=== PATIENT | male | born 1950 | race Caucasian/White ===

== ENCOUNTER 2016-10-26 13:32 | Emergency (ER) | payer MEDICARE ==
[2016-10-26] MEDS ORDERED: Lidocaine 1% w/Epinephrine 1:100K 20 ML VIAL ONE (13:48)
[2016-10-26] MEDS ORDERED: Sodium Bicarbonate 2.4 MEQ/5 ML ONE (13:51)
[2016-10-26] MEDS ORDERED: Amoxicillin/Potassium Clav 875 MG TAB ONE (14:00)
[2016-10-26] MEDS ORDERED: Bacitracin Zinc 1 Packet ONE (14:13)
[2016-10-26] MEDS ORDERED: traMADol HCl 50 MG TAB ONE (14:38)
--- NOTE | 2016-10-26 15:23 | RAD ---
TWO VIEWS OF THE LEFT FORELEG. INDICATION: Laceration injury. FINDINGS: No acute fracture or subluxation is evident. No radiopaque foreign body is noted. IMPRESSION: No acute osseous abnormality. POS: [facility]
== END 2016-10-26 15:20 | disposition home or self-care (01) ==
LOC: NAV ERS 13:32
DX: S81.812A Laceration without foreign body, left lower leg, initial encounter (principal); I10 Essential (primary) hypertension; E78.5 Hyperlipidemia, unspecified; E78.00 Pure hypercholesterolemia, unspecified; F17.220 Nicotine dependence, chewing tobacco, uncomplicated; Z79.899 Other long term (current) drug therapy; W45.8XXA Other foreign body or object entering through skin, initial encounter
CPT/HCPCS: 12034; J2001

== ENCOUNTER 2016-11-02 08:09 | Outpatient (CLI) | payer MEDICARE ==
[2016-11-02 12:42] LABS: Anion Gap 17 mmol/L (10-20); BUN (Urea Nitrogen) 13 mg/dL (8.4-25.7); Calc. Creatinine Clearance 0 mL/min (70-130); Calcium 9.6 mg/dL (7.8-10.44); Carbon Dioxide 23 mmol/L (23-31); Chloride 107 mmol/L (98-107); Estimated GFR-MDRD 81; LDL Cholesterol, Calculated 82 mg/dL
[2016-11-02 13:25] LABS: #Basophils 0.1 thou/uL (0.0-0.2); #Lymphocytes 2.3 thou/uL (1.20-3.40); #Monocytes 0.7 thou/uL (0.11-0.59); %Basophils 0.9 % (0.0-1.0); %Eosinophils 9.9 % (0.0-10.0); %Lymphocytes 22.5 % (21.0-51.0); %Monocytes 6.7 % (0.0-10.0); Hematocrit 47.2 % (42.0-52.0); Red Blood Cell (RBC) Count 5.36 mill/uL (4.70-6.10)
[2016-11-02 13:51] LABS: Hemoglobin A1c 6.2 % (4.0-6.0)
== END 2016-11-02 08:10 ==
LOC: NAVSJIPCSP 08:09
PROVIDERS: ATTEND Family Medicine
DX: E78.00 Pure hypercholesterolemia, unspecified (principal); K21.9 Gastro-esophageal reflux disease without esophagitis; I10 Essential (primary) hypertension; Z79.899 Other long term (current) drug therapy
CPT/HCPCS: 36415; 80048; 80061; 83036; 84443; 85025

== ENCOUNTER 2016-12-10 17:23 | Outpatient (CLI) | payer MEDICARE ==
[2016-12-10 17:47] LABS: Bilirubin Negative (Negative); Blood, Urine Negative (Negative); Clarity Clear (Clear); Glucose, Urine (Dipstick) Negative (Negative); Leukocyte Negative (Negative); Nitrite Negative (Negative); Protein, Urine (Dipstick) Negative (Neg-Trace); Urobilinogen 0.2 mg/dL (0.2-1.0); pH, Urine 5.5 (5.0-9.0)
[2016-12-10 17:49] LABS: Specific Gravity, Urine 1.028 (1.002-1.036)
== END 2016-12-10 17:24 | disposition home or self-care (01) ==
LOC: NAV LAB 17:23
PROVIDERS: ATTEND Family Medicine
DX: N42.82 Prostatosis syndrome (principal); N30.00 Acute cystitis without hematuria
CPT/HCPCS: 81003; 87077; 87086; 87186

== ENCOUNTER 2017-03-05 09:09 | Outpatient (CLI) | payer MEDICARE ==
[2017-03-05 12:29] LABS: #Basophils 0.1 thou/uL (0.0-0.2); #Eosinphils 1.1 thou/uL (0.0-0.7); #Lymphocytes 2.4 thou/uL (1.20-3.40); #Monocytes 0.5 thou/uL (0.11-0.59); #Neutrophils 5.2 thou/uL (1.40-6.50); %Basophils 0.9 % (0.0-1.0); %Eosinophils 11.8 % (0.0-10.0); %Lymphocytes 25.9 % (21.0-51.0); %Monocytes 5.9 % (0.0-10.0); %Neutrophils 55.6 % (42.0-75.0); Hemoglobin 15.4 g/dL (14.0-18.0); Mean Corpuscular HGB CONC 33.1 g/dL (32.0-36.0); Mean Corpuscular Hemoglobin 28.9 pg (27.0-31.0); Mean Corpuscular Volume 87.2 fl (80.0-94.0); Mean Platelet Volume 7.2 fL (7.4-10.4); Platelet Count 233 thou/uL (130-400); RBC Distribution Width 11.5 % (11.5-14.5); Red Blood Cell (RBC) Count 5.34 mill/uL (4.70-6.10); White Blood Cell (WBC) Count 9.3 thou/uL (4.8-10.8)
[2017-03-05 12:41] LABS: ALT (SGPT) 47 U/L (8-55); AST (SGOT) 24 U/L (5-34); Albumin 4.3 g/dL (3.4-4.8); Alkaline Phosphatase 61 U/L (40-150); Anion Gap 17 mmol/L (10-20); BUN (Urea Nitrogen) 17 mg/dL (8.4-25.7); Bilirubin, Direct 0.3 mg/dL (0.1-0.3); Calc. Creatinine Clearance 0 mL/min (70-130); Calcium 9.4 mg/dL (7.8-10.44); Carbon Dioxide 19 mmol/L (23-31); Cardiac Risk 4.6 (Less than 4.5); Chloride 108 mmol/L (98-107); Cholesterol 152 mg/dl (< 200 Desired); Estimated GFR-MDRD 76; Glucose 115 mg/dL (80-115); HDL Cholesterol 33 mg/dL (>60 Neg Risk); LDL Cholesterol, Calculated 88 mg/dL; Potassium 4.3 mmol/L (3.5-5.1); Protein, Total 6.7 g/dL (5.8-8.1); Sodium 140 mmol/L (136-145); Triglycerides 155 mg/dL (Less than 150)
[2017-03-05 13:04] LABS: Hemoglobin A1c 6.2 % (4.0-6.0)
== END 2017-03-05 09:10 | disposition home or self-care (01) ==
LOC: NAVSJIPCSP 09:09
PROVIDERS: ATTEND Family Medicine
DX: I10 Essential (primary) hypertension (principal); K21.9 Gastro-esophageal reflux disease without esophagitis; E78.00 Pure hypercholesterolemia, unspecified; R03.0 Elevated blood-pressure reading, without diagnosis of hypertension
CPT/HCPCS: 36415; 80048; 80061; 80076; 83036; 84443; 85025

== ENCOUNTER 2017-03-12 15:00 | Outpatient (CLI) | payer MEDICARE ==
--- NOTE | 2017-03-12 16:51 | RAD ---
CHEST TWO VIEWS: History: Chronic cough x 7-8 months. Comparison: None. FINDINGS: Atherosclerosis of the aorta. Normal cardiac silhouette. The pulmonary vessels and hilum are normal. Costophrenic angles are clear. No masses or consolidation. No pneumothorax or osseous abnormality. IMPRESSION: No acute cardiopulmonary process. POS: [facility]
== END 2017-03-12 15:01 | disposition home or self-care (01) ==
LOC: NAV RAD 15:00
PROVIDERS: ATTEND Family Medicine
DX: R05 Cough (principal)
CPT/HCPCS: 71020

== ENCOUNTER 2018-03-31 14:44 | Outpatient (CLI) | payer MEDICARE | END 2018-03-31 14:45 | disposition home or self-care (01) | LOC: NAV LABSP 14:44 | PROVIDERS: ATTEND Family Medicine | DX: N41.0 Acute prostatitis (principal); R30.0 Dysuria ==

== ENCOUNTER 2020-08-13 14:33 | Emergency (ER) | payer MEDICARE ==
[2020-08-13] MEDS ORDERED: Aspirin Chewable 81 MG TAB ONE (15:07)
[2020-08-13] MEDS ORDERED: Pantoprazole 40 MG VIAL ONE (15:07)
[2020-08-13] MEDS ORDERED: Ondansetron PF 4 MG/2 ML Vial ONE (15:07)
[2020-08-13] MEDS ORDERED: Lidocaine Viscous Sol 2% 15 ml UD Cup ONE (15:07)
[2020-08-13] MEDS ORDERED: Mag-Al Plus 1200 MG/1200 MG/120 MG/30 ML UDCUP ONE (15:07)
[2020-08-13] MEDS ORDERED: Nitroglycerin 0.4 MG TAB (25 Tab Bottle) ONE (15:07)
[2020-08-13 15:17] LABS: #Basophils 0.1 thou/uL (0.0-0.2); #Eosinphils 0.2 thou/uL (0.0-0.7); #Lymphocytes 1.7 thou/uL (1.20-3.40); #Monocytes 1.1 thou/uL (0.11-0.59); #Neutrophils 10.3 thou/uL (1.40-6.50); %Basophils 0.8 % (0.0-1.0); %Eosinophils 1.8 % (0.0-10.0); %Lymphocytes 12.7 % (21.0-51.0); %Monocytes 7.9 % (0.0-10.0); %Neutrophils 76.8 % (42.0-75.0); Mean Corpuscular HGB CONC 33.1 g/dL (32.0-36.0); Mean Corpuscular Hemoglobin 29.4 pg (27.0-31.0); Mean Corpuscular Volume 88.7 fL (78.0-98.0); Mean Platelet Volume 8.6 fL (7.4-10.4); Platelet Count 210 thou/uL (130-400); RBC Distribution Width 11.2 % (11.5-14.5); Red Blood Cell (RBC) Count 5.09 mill/uL (4.70-6.10); White Blood Cell (WBC) Count 13.4 thou/uL (4.8-10.8)
--- NOTE | 2020-08-13 15:32 | RAD ---
Portable frontal chest radiograph: 08/13/2020 COMPARISON: 03/26/2019 HISTORY: Shortness of breath, chest pain FINDINGS: Lungs are clear. Heart and mediastinal contours appear within normal limits. IMPRESSION: No acute findings.
[2020-08-13 15:33] LABS: ALT (SGPT) 19 U/L (8-55); AST (SGOT) 12 U/L (5-34); Albumin 4.2 g/dL (3.4-4.8); Alkaline Phosphatase 81 U/L (40-110); Anion Gap 14 mmol/L (10-20); BUN (Urea Nitrogen) 14 mg/dL (8.4-25.7); Bilirubin, Total 1.1 mg/dL (0.2-1.2); CK (CPK) 55 U/L (30-200); Calc. Creatinine Clearance 0 mL/min (70-130); Carbon Dioxide 24 mmol/L (23-31); Chloride 106 mmol/L (98-107); Estimated GFR-MDRD 79; Globulin 2.5 g/dL (2.4-3.5); Glucose 135 mg/dL (83-110); Lipase 32 U/L (8-78); Potassium 3.6 mmol/L (3.5-5.1); Protein, Total 6.7 g/dL (5.8-8.1); Sodium 140 mmol/L (136-145)
[2020-08-13] MEDS ORDERED: Morphine 4 MG/ML VIAL ONE (15:50)
[2020-08-13] MEDS ORDERED: Fentanyl 100 MCG/2 ML VIAL ONE (16:17)
== END 2020-08-13 16:43 | disposition short-term general hospital (02) ==
LOC: NAV ERS 14:33
DX: R07.9 Chest pain, unspecified (principal); R10.11 Right upper quadrant pain; E78.5 Hyperlipidemia, unspecified; E78.00 Pure hypercholesterolemia, unspecified; I10 Essential (primary) hypertension; Z79.899 Other long term (current) drug therapy
CPT/HCPCS: 71045; 80053; 82550; 83690; 84484; 85025; 85379; 93005; 96374; 96375; C9113; J2270; J2405; J3010

== ENCOUNTER 2021-05-10 20:47 | Emergency (ER) | payer MEDICARE ==
[2021-05-10 21:56] LABS: #Lymphocytes 0.9 thou/uL (1.20-3.40); #Monocytes 0.3 thou/uL (0.11-0.59); #Neutrophils 5.6 thou/uL (1.40-6.50); %Basophils 0.5 % (0.0-1.0); %Eosinophils 0.1 % (0.0-10.0); %Monocytes 4.9 % (0.0-10.0); %Neutrophils 81.5 % (42.0-75.0); Hemoglobin 15.2 g/dL (14.0-18.0); Mean Corpuscular HGB CONC 32.5 g/dL (32.0-36.0); Mean Corpuscular Volume 89.3 fL (78.0-98.0); Mean Platelet Volume 11.3 fL (7.4-10.4); Platelet Count 125 thou/uL (130-400); RBC Distribution Width 11.1 % (11.5-14.5); Red Blood Cell (RBC) Count 5.22 mill/uL (4.70-6.10); White Blood Cell (WBC) Count 6.9 thou/uL (4.8-10.8)
[2021-05-10 22:12] LABS: ALT (SGPT) 35 U/L (8-55); AST (SGOT) 51 U/L (5-34); Albumin 3.6 g/dL (3.4-4.8); Alkaline Phosphatase 57 U/L (40-110); Anion Gap 16 mmol/L (10-20); BUN (Urea Nitrogen) 20 mg/dL (8.4-25.7); Bilirubin, Total 0.8 mg/dL (0.2-1.2); Calc. Creatinine Clearance 0 mL/min (70-130); Calcium 9.2 mg/dL (7.8-10.44); Carbon Dioxide 18 mmol/L (23-31); Chloride 104 mmol/L (98-107); Globulin 3.4 g/dL (2.4-3.5); Glucose 117 mg/dL (83-110); Potassium 4.3 mmol/L (3.5-5.1); Sodium 134 mmol/L (136-145)
[2021-05-11 18:30] LABS: SARS-CoV-2 PCR by NAA DETECTED (NotDetected)
== END 2021-05-10 23:10 | disposition home or self-care (01) ==
LOC: NAV ERS 20:47
DX: U07.1 COVID-19 (principal); J12.82 Pneumonia due to coronavirus disease 2019; E78.5 Hyperlipidemia, unspecified; I10 Essential (primary) hypertension; Z79.899 Other long term (current) drug therapy
CPT/HCPCS: 71045; 80053; 83605; 84484; 85025; 93005; 99285; U0003; U0005

== ENCOUNTER 2021-05-11 13:30 | Emergency (ER) | payer MEDICARE ==
[~2021-05-11 13:30] MED LIST: Iopamidol 370 76% 100 ML VIAL ONE
[2021-05-11 14:02] LABS: #Monocytes 0.3 thou/uL (0.11-0.59); #Neutrophils 5.8 thou/uL (1.40-6.50); %Basophils 0.2 % (0.0-1.0); %Lymphocytes 13.6 % (21.0-51.0); %Monocytes 3.9 % (0.0-10.0); %Neutrophils 82.3 % (42.0-75.0); Hemoglobin 14.8 g/dL (14.0-18.0); Mean Corpuscular HGB CONC 31.4 g/dL (32.0-36.0); Mean Corpuscular Hemoglobin 28.4 pg (27.0-31.0); Mean Corpuscular Volume 90.3 fL (78.0-98.0); Mean Platelet Volume 9.7 fL (7.4-10.4); Platelet Count 156 thou/uL (130-400); RBC Distribution Width 11.3 % (11.5-14.5); Red Blood Cell (RBC) Count 5.23 mill/uL (4.70-6.10)
[2021-05-11 14:21] LABS: ALT (SGPT) 37 U/L (8-55); AST (SGOT) 52 U/L (5-34); Albumin 3.6 g/dL (3.4-4.8); Alkaline Phosphatase 58 U/L (40-110); Anion Gap 15 mmol/L (10-20); BUN (Urea Nitrogen) 14 mg/dL (8.4-25.7); Bilirubin, Total 0.8 mg/dL (0.2-1.2); Calc. Creatinine Clearance 0 mL/min (70-130); Calcium 9.2 mg/dL (7.8-10.44); Carbon Dioxide 23 mmol/L (23-31); Chloride 102 mmol/L (98-107); Globulin 3.3 g/dL (2.4-3.5); Glucose 110 mg/dL (83-110); Magnesium 1.7 mg/dL (1.6-2.6); Potassium 4.5 mmol/L (3.5-5.1); Protein, Total 6.9 g/dL (5.8-8.1); Sodium 135 mmol/L (136-145)
[2021-05-11] MEDS ORDERED: Acetaminophen 325 MG TAB ONE (16:04)
[2021-05-11] MEDS ORDERED: Dexamethasone 20 MG/5 ML VIAL ONE (16:04)
[2021-05-11] MEDS ORDERED: Ibuprofen 200 MG TAB ONE (16:04)
== END 2021-05-12 01:44 | disposition short-term general hospital (02) ==
LOC: NAV ERS 13:30
DX: U07.1 COVID-19 (principal); J12.82 Pneumonia due to coronavirus disease 2019; R09.02 Hypoxemia; E78.5 Hyperlipidemia, unspecified; E78.00 Pure hypercholesterolemia, unspecified; I10 Essential (primary) hypertension; Z79.899 Other long term (current) drug therapy
CPT/HCPCS: 71045; 71275; 80053; 83735; 84484; 85025; 85379; 93005; 94760; 96374; J1100; Q9967

== ENCOUNTER 2021-06-13 15:27 | Inpatient (IN) | payer MEDICARE ==
[2021-06-13] MEDS ORDERED: Dextrose 50% Abboject 50 ML SYRINGE SLOW IVP PRN (19:55)
[2021-06-13] MEDS ORDERED: Dextrose 5% in Water 1,000 ML IV PRN (20:00)
[2021-06-13] MEDS ORDERED: PREPARATION H OINTMENT TOP PRN (20:13)
[2021-06-13] MEDS ORDERED: Cepastat Lozenges 1 LOZ PO PRN (21:14)
[2021-06-13] MEDS ORDERED: Chloraseptic Spray 180 ml Bottle PO PRN (21:30)
[2021-06-13] MEDS ORDERED: hydrOXYzine 25 MG TAB PO SCH (21:30)
[2021-06-13] MEDS: Acetaminophen 325 MG TAB PO PRN (21:42)
[2021-06-13] MEDS: Nystatin 500,000 UNITS/5 ML UDCUP SSW SCH (21:42)
[2021-06-13] MEDS: Melatonin 3 MG TAB PO PRN (21:42)
[2021-06-13] MEDS: busPIRone HCl 15 MG TAB PO SCH (21:43)
[2021-06-13] MEDS: diphenhydrAMINE 50 MG/ML VIAL IVP SCH (21:43)
[2021-06-13] MEDS: Atorvastatin Calcium 20 MG TAB PO SCH (21:43)
[2021-06-13] MEDS: guaiFENesin ER 600 MG TAB PO SCH (21:43)
[2021-06-13] MEDS: Lantus 1000 UNITS/10 ML VIAL SC SCH (21:44)
[2021-06-13] MEDS: Mometasone 100 MCG/PUFF (1 INHALER) INH SCH (21:44)
[2021-06-13] MEDS: HumaLOG 300 UNITS/3 ML VIAL SC PRN (21:45)
[2021-06-14] MEDS: Calcium Carbonate 500 MG ChewTAB PO PRN ×2 (02:05→11:05)
[2021-06-14] MEDS: Acetaminophen 325 MG TAB PO PRN ×3 (03:49→22:30)
[2021-06-14 07:00] LABS: Anion Gap 12 mmol/L (10-20); BUN (Urea Nitrogen) 23 mg/dL (8.4-25.7); Calc. Creatinine Clearance 121 mL/min (70-130); Calcium 9.4 mg/dL (7.8-10.44); Carbon Dioxide 25 mmol/L (23-31); Chloride 101 mmol/L (98-107); Glucose 123 mg/dL (83-110); Potassium 4.3 mmol/L (3.5-5.1); Sodium 134 mmol/L (136-145)
[2021-06-14 07:13] LABS: #Basophils 0.2 thou/uL (0.0-0.2); #Lymphocytes 1.3 thou/uL (1.20-3.40); #Monocytes 1.1 thou/uL (0.11-0.59); #Neutrophils 12.5 thou/uL (1.40-6.50); %Basophils 1.2 % (0.0-1.0); %Eosinophils 0.3 % (0.0-10.0); %Lymphocytes 8.8 % (21.0-51.0); %Monocytes 7.3 % (0.0-10.0); %Neutrophils 82.5 % (42.0-75.0); Hemoglobin 15.4 g/dL (14.0-18.0); Mean Corpuscular HGB CONC 32.6 g/dL (32.0-36.0); Mean Corpuscular Hemoglobin 29.2 pg (27.0-31.0); Mean Corpuscular Volume 89.5 fL (78.0-98.0); Mean Platelet Volume 6.6 fL (7.4-10.4); Platelet Count 205 thou/uL (130-400); RBC Distribution Width 11.6 % (11.5-14.5); Red Blood Cell (RBC) Count 5.27 mill/uL (4.70-6.10); White Blood Cell (WBC) Count 15.2 thou/uL (4.8-10.8)
[2021-06-14] MEDS: Ascorbic Acid 500 mg Chewable Tablet PO SCH (08:48)
[2021-06-14] MEDS: guaiFENesin ER 600 MG TAB PO SCH ×2 (08:48→20:44)
[2021-06-14] MEDS: Cholecalciferol 1,000 UNITS (25 MCG) TAB PO SCH (08:48)
[2021-06-14] MEDS: busPIRone HCl 15 MG TAB PO SCH ×2 (08:48→20:44)
[2021-06-14] MEDS: Dexamethasone 4 MG TAB PO SCH (08:48)
[2021-06-14] MEDS: Polyethylene Glycol 3350 17 GM Packet PO SCH (08:49)
[2021-06-14] MEDS: Nystatin 500,000 UNITS/5 ML UDCUP SSW SCH ×4 (08:49→20:44)
[2021-06-14] MEDS: Zinc Sulfate 220 MG CAP PO SCH (08:50)
[2021-06-14] MEDS: Metamucil PACK PO SCH (08:50)
[2021-06-14] MEDS: Mometasone 100 MCG/PUFF (1 INHALER) INH SCH ×2 (08:51→20:46)
[2021-06-14] MEDS: hydrOXYzine 25 MG TAB PO PRN (08:55)
[2021-06-14] MEDS ORDERED: Pantoprazole 40 MG GRANULES PACKET PO SCH (09:00)
[2021-06-14] MEDS ORDERED: Losartan 25 MG TAB PO SCH (09:00)
[2021-06-14 11:50] LABS: Hemoglobin A1c 8.1 % (4.0-6.0)
[2021-06-14] MEDS: HumaLOG 300 UNITS/3 ML VIAL SC PRN ×3 (11:51→20:47)
[2021-06-14] MEDS: Guaifenesin DM 100-10/5 ML UDCUP PO PRN (18:12)
[2021-06-14] MEDS: Benzonatate 100 MG CAP PO PRN (18:12)
[2021-06-14] MEDS: Melatonin 3 MG TAB PO PRN (20:44)
[2021-06-14] MEDS: Atorvastatin Calcium 20 MG TAB PO SCH (20:44)
[2021-06-14] MEDS: diphenhydrAMINE 50 MG/ML VIAL IVP SCH (20:44)
[2021-06-14] MEDS: Lantus 1000 UNITS/10 ML VIAL SC SCH (20:45)
[2021-06-14] MEDS: Enoxaparin Sodium 40 MG/0.4 ML SYRINGE SC SCH (20:45)
[2021-06-14] MEDS ORDERED: hydrOXYzine 25 MG TAB PO SCH (21:00)
[2021-06-15] MEDS: Acetaminophen 325 MG TAB PO PRN ×3 (05:28→20:52)
[2021-06-15] MEDS: HumaLOG 300 UNITS/3 ML VIAL SC PRN ×4 (06:22→20:36)
[2021-06-15] MEDS: Cholecalciferol 1,000 UNITS (25 MCG) TAB PO SCH (08:10)
[2021-06-15] MEDS: guaiFENesin ER 600 MG TAB PO SCH ×2 (08:10→20:42)
[2021-06-15] MEDS: busPIRone HCl 15 MG TAB PO SCH ×2 (08:10→20:41)
[2021-06-15] MEDS: Ascorbic Acid 500 mg Chewable Tablet PO SCH (08:10)
[2021-06-15] MEDS: Dexamethasone 4 MG TAB PO SCH (08:10)
[2021-06-15] MEDS: Mometasone 100 MCG/PUFF (1 INHALER) INH SCH ×2 (08:11→20:42)
[2021-06-15] MEDS: Nystatin 500,000 UNITS/5 ML UDCUP SSW SCH ×4 (08:11→20:41)
[2021-06-15] MEDS: Losartan Potassium 50 MG TAB PO SCH (08:11)
[2021-06-15] MEDS: Metamucil PACK PO SCH (08:12)
[2021-06-15] MEDS: Polyethylene Glycol 3350 17 GM Packet PO SCH (08:12)
[2021-06-15] MEDS: Zinc Sulfate 220 MG CAP PO SCH (08:12)
[2021-06-15] MEDS: hydrOXYzine 25 MG TAB PO PRN (08:15)
[2021-06-15] MEDS: clonazePAM 0.5 MG TAB PO PRN (11:33)
[2021-06-15] MEDS: Lantus 1000 UNITS/10 ML VIAL SC SCH (20:37)
[2021-06-15] MEDS: Enoxaparin Sodium 40 MG/0.4 ML SYRINGE SC SCH (20:38)
[2021-06-15] MEDS: Atorvastatin Calcium 20 MG TAB PO SCH (20:41)
[2021-06-15] MEDS: diphenhydrAMINE 25 MG CAP PO SCH (20:42)
[2021-06-16] MEDS: guaiFENesin/Codeine 200 mg/20 mg 10 ml Cup PO PRN (00:18)
[2021-06-16] MEDS: Acetaminophen 325 MG TAB PO PRN ×3 (02:16→17:21)
[2021-06-16] MEDS: Metamucil PACK PO SCH (08:43)
[2021-06-16] MEDS: Polyethylene Glycol 3350 17 GM Packet PO SCH (08:44)
[2021-06-16] MEDS: Ascorbic Acid 500 mg Chewable Tablet PO SCH (08:44)
[2021-06-16] MEDS: guaiFENesin ER 600 MG TAB PO SCH ×2 (08:44→20:44)
[2021-06-16] MEDS: Nystatin 500,000 UNITS/5 ML UDCUP SSW SCH ×4 (08:45→20:44)
[2021-06-16] MEDS: Cholecalciferol 1,000 UNITS (25 MCG) TAB PO SCH (08:45)
[2021-06-16] MEDS: Dexamethasone 4 MG TAB PO SCH (08:45)
[2021-06-16] MEDS: busPIRone HCl 15 MG TAB PO SCH ×2 (08:45→20:44)
[2021-06-16] MEDS: Losartan Potassium 50 MG TAB PO SCH (08:45)
[2021-06-16] MEDS: Mometasone 100 MCG/PUFF (1 INHALER) INH SCH ×2 (08:46→20:55)
[2021-06-16] MEDS: Zinc Sulfate 220 MG CAP PO SCH (08:47)
[2021-06-16] MEDS: Benzonatate 100 MG CAP PO PRN ×2 (08:48→20:44)
[2021-06-16] MEDS: HumaLOG 300 UNITS/3 ML VIAL SC PRN ×2 (11:34→16:38)
[2021-06-16] MEDS: Enoxaparin Sodium 40 MG/0.4 ML SYRINGE SC SCH (20:43)
[2021-06-16] MEDS: clonazePAM 0.5 MG TAB PO PRN (20:44)
[2021-06-16] MEDS: Lantus 1000 UNITS/10 ML VIAL SC SCH (20:44)
[2021-06-16] MEDS: diphenhydrAMINE 25 MG CAP PO SCH (20:44)
[2021-06-16] MEDS: Atorvastatin Calcium 20 MG TAB PO SCH (20:44)
[2021-06-17] MEDS: guaiFENesin/Codeine 200 mg/20 mg 10 ml Cup PO PRN (00:15)
[2021-06-17] MEDS: Melatonin 3 MG TAB PO PRN (00:15)
[2021-06-17 05:28] LABS: #Basophils 0.2 thou/uL (0.0-0.2); #Lymphocytes 1.8 thou/uL (1.20-3.40); #Monocytes 0.8 thou/uL (0.11-0.59); #Neutrophils 10.7 thou/uL (1.40-6.50); %Basophils 1.2 % (0.0-1.0); %Eosinophils 0.3 % (0.0-10.0); %Lymphocytes 13.3 % (21.0-51.0); %Monocytes 5.8 % (0.0-10.0); %Neutrophils 79.3 % (42.0-75.0); Hemoglobin 15.2 g/dL (14.0-18.0); Mean Corpuscular HGB CONC 33.2 g/dL (32.0-36.0); Mean Corpuscular Hemoglobin 29.4 pg (27.0-31.0); Mean Corpuscular Volume 88.7 fL (78.0-98.0); Mean Platelet Volume 6.3 fL (7.4-10.4); Platelet Count 163 thou/uL (130-400); RBC Distribution Width 12.3 % (11.5-14.5); Red Blood Cell (RBC) Count 5.18 mill/uL (4.70-6.10); White Blood Cell (WBC) Count 13.5 thou/uL (4.8-10.8)
[2021-06-17 05:47] LABS: Anion Gap 12 mmol/L (10-20); BUN (Urea Nitrogen) 19 mg/dL (8.4-25.7); Calc. Creatinine Clearance 121 mL/min (70-130); Carbon Dioxide 26 mmol/L (23-31); Chloride 101 mmol/L (98-107); Potassium 4.1 mmol/L (3.5-5.1); Sodium 135 mmol/L (136-145)
[2021-06-17 05:48] LABS: Calcium 8.8 mg/dL (7.8-10.44); Glucose 102 mg/dL (83-110)
[2021-06-17] MEDS: Cholecalciferol 1,000 UNITS (25 MCG) TAB PO SCH (08:41)
[2021-06-17] MEDS: guaiFENesin ER 600 MG TAB PO SCH ×2 (08:42→20:48)
[2021-06-17] MEDS: Ascorbic Acid 500 mg Chewable Tablet PO SCH (08:42)
[2021-06-17] MEDS: busPIRone HCl 15 MG TAB PO SCH ×2 (08:43→20:47)
[2021-06-17] MEDS: Metamucil PACK PO SCH (08:43)
[2021-06-17] MEDS: Zinc Sulfate 220 MG CAP PO SCH (08:43)
[2021-06-17] MEDS: Mometasone 100 MCG/PUFF (1 INHALER) INH SCH ×2 (08:43→20:56)
[2021-06-17] MEDS: Dexamethasone 4 MG TAB PO SCH (08:43)
[2021-06-17] MEDS: Losartan Potassium 50 MG TAB PO SCH (08:43)
[2021-06-17] MEDS: Nystatin 500,000 UNITS/5 ML UDCUP SSW SCH ×4 (08:43→20:46)
[2021-06-17] MEDS: Polyethylene Glycol 3350 17 GM Packet PO SCH (08:44)
[2021-06-17] MEDS: Benzonatate 100 MG CAP PO PRN ×2 (08:45→20:47)
[2021-06-17] MEDS: Acetaminophen 325 MG TAB PO PRN ×3 (08:45→20:46)
[2021-06-17] MEDS: HumaLOG 300 UNITS/3 ML VIAL SC PRN ×3 (11:44→20:46)
[2021-06-17] MEDS: Lantus 1000 UNITS/10 ML VIAL SC SCH (20:45)
[2021-06-17] MEDS: Enoxaparin Sodium 40 MG/0.4 ML SYRINGE SC SCH (20:45)
[2021-06-17] MEDS: clonazePAM 0.5 MG TAB PO PRN (20:47)
[2021-06-17] MEDS: diphenhydrAMINE 25 MG CAP PO SCH (20:47)
[2021-06-17] MEDS: Atorvastatin Calcium 20 MG TAB PO SCH (20:48)
[2021-06-18] MEDS: guaiFENesin/Codeine 200 mg/20 mg 10 ml Cup PO PRN (00:17)
[2021-06-18] MEDS: Melatonin 3 MG TAB PO PRN (00:17)
[2021-06-18] MEDS: Cholecalciferol 1,000 UNITS (25 MCG) TAB PO SCH (08:36)
[2021-06-18] MEDS: Polyethylene Glycol 3350 17 GM Packet PO SCH (08:36)
[2021-06-18] MEDS: Mometasone 100 MCG/PUFF (1 INHALER) INH SCH ×2 (08:37→20:50)
[2021-06-18] MEDS: Metamucil PACK PO SCH (08:37)
[2021-06-18] MEDS: Nystatin 500,000 UNITS/5 ML UDCUP SSW SCH ×4 (08:37→20:49)
[2021-06-18] MEDS: Ascorbic Acid 500 mg Chewable Tablet PO SCH (08:37)
[2021-06-18] MEDS: guaiFENesin ER 600 MG TAB PO SCH ×2 (08:37→20:49)
[2021-06-18] MEDS: Zinc Sulfate 220 MG CAP PO SCH (08:37)
[2021-06-18] MEDS: busPIRone HCl 15 MG TAB PO SCH ×2 (08:37→20:49)
[2021-06-18] MEDS: Dexamethasone 4 MG TAB PO SCH (08:37)
[2021-06-18] MEDS: Losartan Potassium 50 MG TAB PO SCH (08:38)
[2021-06-18] MEDS: Benzonatate 100 MG CAP PO PRN ×2 (08:42→20:50)
[2021-06-18] MEDS: Acetaminophen 325 MG TAB PO PRN ×3 (08:42→20:49)
[2021-06-18] MEDS: HumaLOG 300 UNITS/3 ML VIAL SC PRN ×3 (11:38→20:47)
[2021-06-18] MEDS: Guaifenesin DM 100-10/5 ML UDCUP PO PRN (16:48)
[2021-06-18] MEDS: Lantus 1000 UNITS/10 ML VIAL SC SCH (20:46)
[2021-06-18] MEDS: Enoxaparin Sodium 40 MG/0.4 ML SYRINGE SC SCH (20:47)
[2021-06-18] MEDS: clonazePAM 0.5 MG TAB PO PRN (20:49)
[2021-06-18] MEDS: diphenhydrAMINE 25 MG CAP PO SCH (20:50)
[2021-06-18] MEDS: Atorvastatin Calcium 20 MG TAB PO SCH (20:50)
[2021-06-19] MEDS: Melatonin 3 MG TAB PO PRN ×2 (01:45→22:49)
[2021-06-19] MEDS: guaiFENesin/Codeine 200 mg/20 mg 10 ml Cup PO PRN ×2 (02:10→22:49)
[2021-06-19] MEDS: HumaLOG 300 UNITS/3 ML VIAL SC PRN ×3 (05:24→17:17)
[2021-06-19] MEDS: Dexamethasone 4 MG TAB PO SCH (08:29)
[2021-06-19] MEDS: Ascorbic Acid 500 mg Chewable Tablet PO SCH (08:30)
[2021-06-19] MEDS: busPIRone HCl 15 MG TAB PO SCH ×2 (08:31→20:17)
[2021-06-19] MEDS: guaiFENesin ER 600 MG TAB PO SCH ×2 (08:31→20:17)
[2021-06-19] MEDS: Zinc Sulfate 220 MG CAP PO SCH (08:31)
[2021-06-19] MEDS: Cholecalciferol 1,000 UNITS (25 MCG) TAB PO SCH (08:32)
[2021-06-19] MEDS: Nystatin 500,000 UNITS/5 ML UDCUP SSW SCH ×4 (08:32→20:16)
[2021-06-19] MEDS: Polyethylene Glycol 3350 17 GM Packet PO SCH (08:33)
[2021-06-19] MEDS: Metamucil PACK PO SCH (08:34)
[2021-06-19] MEDS: Mometasone 100 MCG/PUFF (1 INHALER) INH SCH ×2 (08:39→20:18)
[2021-06-19] MEDS: Losartan Potassium 50 MG TAB PO SCH (08:45)
[2021-06-19] MEDS: Lantus 1000 UNITS/10 ML VIAL SC SCH (20:15)
[2021-06-19] MEDS: Enoxaparin Sodium 40 MG/0.4 ML SYRINGE SC SCH (20:16)
[2021-06-19] MEDS: Acetaminophen 325 MG TAB PO PRN (20:16)
[2021-06-19] MEDS: Atorvastatin Calcium 20 MG TAB PO SCH (20:17)
[2021-06-19] MEDS: diphenhydrAMINE 25 MG CAP PO SCH (20:17)
[2021-06-19] MEDS: Benzonatate 100 MG CAP PO PRN (20:17)
[2021-06-19] MEDS: clonazePAM 0.5 MG TAB PO PRN (20:17)
[2021-06-20] MEDS: HumaLOG 300 UNITS/3 ML VIAL SC PRN ×4 (06:02→20:37)
[2021-06-20 06:25] LABS: #Basophils 0.2 thou/uL (0.0-0.2); #Lymphocytes 1.7 thou/uL (1.20-3.40); #Monocytes 0.7 thou/uL (0.11-0.59); #Neutrophils 9.6 thou/uL (1.40-6.50); %Basophils 1.9 % (0.0-1.0); %Eosinophils 0.2 % (0.0-10.0); %Lymphocytes 13.9 % (21.0-51.0); %Monocytes 5.4 % (0.0-10.0); %Neutrophils 78.6 % (42.0-75.0); Hemoglobin 14.1 g/dL (14.0-18.0); Mean Corpuscular HGB CONC 32.7 g/dL (32.0-36.0); Mean Corpuscular Hemoglobin 29.2 pg (27.0-31.0); Mean Corpuscular Volume 89.3 fL (78.0-98.0); Mean Platelet Volume 6.5 fL (7.4-10.4); Platelet Count 136 thou/uL (130-400); RBC Distribution Width 12.4 % (11.5-14.5); Red Blood Cell (RBC) Count 4.83 mill/uL (4.70-6.10); White Blood Cell (WBC) Count 12.2 thou/uL (4.8-10.8)
[2021-06-20 06:32] LABS: Anion Gap 11 mmol/L (10-20); BUN (Urea Nitrogen) 20 mg/dL (8.4-25.7); Calc. Creatinine Clearance 135 mL/min (70-130); Calcium 9.1 mg/dL (7.8-10.44); Carbon Dioxide 25 mmol/L (23-31); Chloride 102 mmol/L (98-107); Glucose 166 mg/dL (83-110); Potassium 4.2 mmol/L (3.5-5.1); Sodium 134 mmol/L (136-145)
[2021-06-20] MEDS: Cholecalciferol 1,000 UNITS (25 MCG) TAB PO SCH (08:06)
[2021-06-20] MEDS: guaiFENesin ER 600 MG TAB PO SCH ×2 (08:06→20:36)
[2021-06-20] MEDS: Ascorbic Acid 500 mg Chewable Tablet PO SCH (08:06)
[2021-06-20] MEDS: Dexamethasone 4 MG TAB PO SCH (08:06)
[2021-06-20] MEDS: busPIRone HCl 15 MG TAB PO SCH ×2 (08:06→20:36)
[2021-06-20] MEDS: Mometasone 100 MCG/PUFF (1 INHALER) INH SCH ×2 (08:07→20:38)
[2021-06-20] MEDS: Nystatin 500,000 UNITS/5 ML UDCUP SSW SCH ×4 (08:07→20:35)
[2021-06-20] MEDS: Losartan Potassium 50 MG TAB PO SCH (08:07)
[2021-06-20] MEDS: Polyethylene Glycol 3350 17 GM Packet PO SCH (08:08)
[2021-06-20] MEDS: Metamucil PACK PO SCH (08:08)
[2021-06-20] MEDS: Zinc Sulfate 220 MG CAP PO SCH (08:08)
[2021-06-20] MEDS: Benzonatate 100 MG CAP PO PRN ×2 (08:10→20:36)
[2021-06-20] MEDS: Acetaminophen 325 MG TAB PO PRN ×2 (08:10→16:28)
[2021-06-20] MEDS: clonazePAM 0.5 MG TAB PO PRN (20:35)
[2021-06-20] MEDS: Atorvastatin Calcium 20 MG TAB PO SCH (20:36)
[2021-06-20] MEDS: diphenhydrAMINE 25 MG CAP PO SCH (20:36)
[2021-06-20] MEDS: Lantus 1000 UNITS/10 ML VIAL SC SCH (20:37)
[2021-06-20] MEDS: Enoxaparin Sodium 40 MG/0.4 ML SYRINGE SC SCH (20:37)
[2021-06-20] MEDS: guaiFENesin/Codeine 200 mg/20 mg 10 ml Cup PO PRN (22:27)
[2021-06-20] MEDS: Melatonin 3 MG TAB PO PRN (22:27)
[2021-06-21] MEDS: Acetaminophen 325 MG TAB PO PRN ×2 (01:12→13:01)
[2021-06-21] MEDS: Nystatin 500,000 UNITS/5 ML UDCUP SSW SCH ×4 (09:01→20:13)
[2021-06-21] MEDS: Zinc Sulfate 220 MG CAP PO SCH (09:01)
[2021-06-21] MEDS: Cholecalciferol 1,000 UNITS (25 MCG) TAB PO SCH (09:01)
[2021-06-21] MEDS: Polyethylene Glycol 3350 17 GM Packet PO SCH (09:01)
[2021-06-21] MEDS: busPIRone HCl 15 MG TAB PO SCH ×2 (09:02→20:12)
[2021-06-21] MEDS: Losartan Potassium 50 MG TAB PO SCH (09:02)
[2021-06-21] MEDS: Ascorbic Acid 500 mg Chewable Tablet PO SCH (09:02)
[2021-06-21] MEDS: guaiFENesin ER 600 MG TAB PO SCH ×2 (09:02→20:12)
[2021-06-21] MEDS: Dexamethasone 4 MG TAB PO SCH (09:03)
[2021-06-21] MEDS: Mometasone 100 MCG/PUFF (1 INHALER) INH SCH ×2 (09:03→20:14)
[2021-06-21] MEDS: Metamucil PACK PO SCH (09:03)
[2021-06-21] MEDS: HumaLOG 300 UNITS/3 ML VIAL SC PRN ×2 (12:23→16:41)
[2021-06-21] MEDS: diphenhydrAMINE 25 MG CAP PO SCH (20:12)
[2021-06-21] MEDS: Atorvastatin Calcium 20 MG TAB PO SCH (20:12)
[2021-06-21] MEDS: Enoxaparin Sodium 40 MG/0.4 ML SYRINGE SC SCH (20:12)
[2021-06-21] MEDS: Lantus 1000 UNITS/10 ML VIAL SC SCH (20:13)
[2021-06-21] MEDS: clonazePAM 0.5 MG TAB PO PRN (20:26)
[2021-06-22] MEDS: guaiFENesin/Codeine 200 mg/20 mg 10 ml Cup PO PRN (00:33)
[2021-06-22] MEDS: Acetaminophen 325 MG TAB PO PRN ×4 (00:34→22:51)
[2021-06-22] MEDS: Melatonin 3 MG TAB PO PRN ×2 (00:35→22:51)
[2021-06-22] MEDS: HumaLOG 300 UNITS/3 ML VIAL SC PRN ×2 (06:44→17:02)
[2021-06-22] MEDS: Ascorbic Acid 500 mg Chewable Tablet PO SCH (08:44)
[2021-06-22] MEDS: Cholecalciferol 1,000 UNITS (25 MCG) TAB PO SCH (08:44)
[2021-06-22] MEDS: Zinc Sulfate 220 MG CAP PO SCH (08:44)
[2021-06-22] MEDS: Dexamethasone 4 MG TAB PO SCH (08:45)
[2021-06-22] MEDS: guaiFENesin ER 600 MG TAB PO SCH ×2 (08:45→20:30)
[2021-06-22] MEDS: Losartan Potassium 50 MG TAB PO SCH (08:45)
[2021-06-22] MEDS: Nystatin 500,000 UNITS/5 ML UDCUP SSW SCH ×4 (08:46→20:30)
[2021-06-22] MEDS: Polyethylene Glycol 3350 17 GM Packet PO SCH (08:46)
[2021-06-22] MEDS: busPIRone HCl 15 MG TAB PO SCH ×2 (08:46→20:30)
[2021-06-22] MEDS: Metamucil PACK PO SCH (08:47)
[2021-06-22] MEDS: Mometasone 100 MCG/PUFF (1 INHALER) INH SCH ×2 (08:47→20:31)
[2021-06-22] MEDS: diphenhydrAMINE 25 MG CAP PO SCH (20:29)
[2021-06-22] MEDS: Lantus 1000 UNITS/10 ML VIAL SC SCH (20:30)
[2021-06-22] MEDS: Atorvastatin Calcium 20 MG TAB PO SCH (20:30)
[2021-06-22] MEDS: clonazePAM 0.5 MG TAB PO PRN (20:30)
[2021-06-22] MEDS: Enoxaparin Sodium 40 MG/0.4 ML SYRINGE SC SCH (20:30)
[2021-06-22] MEDS: Guaifenesin DM 100-10/5 ML UDCUP PO PRN (22:51)
[2021-06-23] MEDS: busPIRone HCl 15 MG TAB PO SCH ×2 (08:50→20:37)
[2021-06-23] MEDS: Nystatin 500,000 UNITS/5 ML UDCUP SSW SCH ×4 (08:50→20:38)
[2021-06-23] MEDS: Ascorbic Acid 500 mg Chewable Tablet PO SCH (08:50)
[2021-06-23] MEDS: Zinc Sulfate 220 MG CAP PO SCH (08:50)
[2021-06-23] MEDS: Cholecalciferol 1,000 UNITS (25 MCG) TAB PO SCH (08:50)
[2021-06-23] MEDS: Losartan Potassium 50 MG TAB PO SCH (08:51)
[2021-06-23] MEDS: guaiFENesin ER 600 MG TAB PO SCH ×2 (08:51→20:37)
[2021-06-23] MEDS: Polyethylene Glycol 3350 17 GM Packet PO SCH (08:51)
[2021-06-23] MEDS: Mometasone 100 MCG/PUFF (1 INHALER) INH SCH ×2 (08:51→20:38)
[2021-06-23] MEDS: Dexamethasone 4 MG TAB PO SCH (08:51)
[2021-06-23] MEDS: Metamucil PACK PO SCH (08:52)
[2021-06-23] MEDS: Acetaminophen 325 MG TAB PO PRN ×2 (08:55→20:42)
[2021-06-23] MEDS: HumaLOG 300 UNITS/3 ML VIAL SC PRN (18:08)
[2021-06-23] MEDS: Atorvastatin Calcium 20 MG TAB PO SCH (20:37)
[2021-06-23] MEDS: diphenhydrAMINE 25 MG CAP PO SCH (20:37)
[2021-06-23] MEDS: Enoxaparin Sodium 40 MG/0.4 ML SYRINGE SC SCH (20:37)
[2021-06-23] MEDS: clonazePAM 0.5 MG TAB PO PRN (20:37)
[2021-06-23] MEDS: Lantus 1000 UNITS/10 ML VIAL SC SCH (20:38)
[2021-06-23] MEDS: Guaifenesin DM 100-10/5 ML UDCUP PO PRN (22:40)
[2021-06-23] MEDS: Melatonin 3 MG TAB PO PRN (22:40)
[2021-06-24] MEDS: Dexamethasone 4 MG TAB PO SCH (08:16)
[2021-06-24] MEDS: busPIRone HCl 15 MG TAB PO SCH ×2 (08:16→20:47)
[2021-06-24] MEDS: Ascorbic Acid 500 mg Chewable Tablet PO SCH (08:16)
[2021-06-24] MEDS: Cholecalciferol 1,000 UNITS (25 MCG) TAB PO SCH (08:16)
[2021-06-24] MEDS: Zinc Sulfate 220 MG CAP PO SCH (08:17)
[2021-06-24] MEDS: guaiFENesin ER 600 MG TAB PO SCH ×2 (08:17→20:47)
[2021-06-24] MEDS: Nystatin 500,000 UNITS/5 ML UDCUP SSW SCH ×4 (08:17→20:48)
[2021-06-24] MEDS: Polyethylene Glycol 3350 17 GM Packet PO SCH (08:18)
[2021-06-24] MEDS: Metamucil PACK PO SCH (08:18)
[2021-06-24] MEDS: Mometasone 100 MCG/PUFF (1 INHALER) INH SCH ×2 (08:19→20:48)
[2021-06-24] MEDS: Losartan Potassium 50 MG TAB PO SCH (08:19)
[2021-06-24] MEDS: Acetaminophen 325 MG TAB PO PRN ×3 (08:24→20:47)
[2021-06-24] MEDS: HumaLOG 300 UNITS/3 ML VIAL SC PRN ×3 (11:58→20:50)
[2021-06-24] MEDS: Enoxaparin Sodium 40 MG/0.4 ML SYRINGE SC SCH (20:46)
[2021-06-24] MEDS: diphenhydrAMINE 25 MG CAP PO SCH (20:47)
[2021-06-24] MEDS: clonazePAM 0.5 MG TAB PO PRN (20:47)
[2021-06-24] MEDS: Atorvastatin Calcium 20 MG TAB PO SCH (20:47)
[2021-06-24] MEDS: Lantus 1000 UNITS/10 ML VIAL SC SCH (20:50)
[2021-06-24] MEDS: Melatonin 3 MG TAB PO PRN (23:23)
[2021-06-24] MEDS: guaiFENesin/Codeine 200 mg/20 mg 10 ml Cup PO PRN (23:23)
[2021-06-25 04:39] VITALS: BMI 24.5
[2021-06-25] MEDS: Acetaminophen 325 MG TAB PO PRN ×3 (04:46→20:40)
[2021-06-25 05:37] LABS: #Basophils 0.1 thou/uL (0.0-0.2); #Lymphocytes 1.2 thou/uL (1.20-3.40); #Monocytes 0.6 thou/uL (0.11-0.59); #Neutrophils 9.3 thou/uL (1.40-6.50); %Basophils 0.6 % (0.0-1.0); %Eosinophils 0.2 % (0.0-10.0); %Lymphocytes 10.8 % (21.0-51.0); %Monocytes 5.1 % (0.0-10.0); %Neutrophils 83.2 % (42.0-75.0); Hemoglobin 14.9 g/dL (14.0-18.0); Mean Corpuscular HGB CONC 32.8 g/dL (32.0-36.0); Mean Corpuscular Hemoglobin 29.4 pg (27.0-31.0); Mean Corpuscular Volume 89.7 fL (78.0-98.0); Mean Platelet Volume 7.8 fL (7.4-10.4); Platelet Count 130 thou/uL (130-400); RBC Distribution Width 13.4 % (11.5-14.5); Red Blood Cell (RBC) Count 5.06 mill/uL (4.70-6.10); White Blood Cell (WBC) Count 11.2 thou/uL (4.8-10.8)
[2021-06-25 05:53] LABS: ALT (SGPT) 113 U/L (8-55); AST (SGOT) 27 U/L (5-34); Albumin 3.3 g/dL (3.4-4.8); Alkaline Phosphatase 139 U/L (40-110); Anion Gap 14 mmol/L (10-20); BUN (Urea Nitrogen) 15 mg/dL (8.4-25.7); Calc. Creatinine Clearance 113 mL/min (70-130); Carbon Dioxide 28 mmol/L (23-31); Chloride 100 mmol/L (98-107); Globulin 2.7 g/dL (2.4-3.5); Glucose 141 mg/dL (83-110); Potassium 4.5 mmol/L (3.5-5.1); Sodium 137 mmol/L (136-145)
[2021-06-25 06:38] LABS: Bilirubin Negative (Negative); Blood, Urine Large (Negative); Clarity Slightly Cloudy (Clear); Glucose, Urine (Dipstick) Negative (Negative); Ketone, Urine Negative (Negative); Leukocyte Large (Negative); Nitrite Negative (Negative); Protein, Urine (Dipstick) Negative (Neg-Trace); Urobilinogen 0.2 mg/dL (Less than 2)
[2021-06-25 06:56] LABS: Squamous Epithelial 0-3 HPF (0-3); WBC/HPF 21-50 HPF (0-3)
[2021-06-25 06:57] LABS: Bacteria/HPF 2+ HPF (None Seen); Yeast-Budding 1+ HPF (None Seen)
[2021-06-25 07:03] LABS: Urine Culture Reflex Yes Yes
[2021-06-25] MEDS: guaiFENesin ER 600 MG TAB PO SCH ×2 (08:13→20:38)
[2021-06-25] MEDS: Dexamethasone 4 MG TAB PO SCH (08:13)
[2021-06-25] MEDS: Ascorbic Acid 500 mg Chewable Tablet PO SCH (08:13)
[2021-06-25] MEDS: busPIRone HCl 15 MG TAB PO SCH ×2 (08:13→20:38)
[2021-06-25] MEDS: Cholecalciferol 1,000 UNITS (25 MCG) TAB PO SCH (08:13)
[2021-06-25] MEDS: Mometasone 100 MCG/PUFF (1 INHALER) INH SCH ×2 (08:14→20:54)
[2021-06-25] MEDS: Polyethylene Glycol 3350 17 GM Packet PO SCH (08:14)
[2021-06-25] MEDS: Losartan Potassium 50 MG TAB PO SCH (08:14)
[2021-06-25] MEDS: Metamucil PACK PO SCH ×2 (08:14→08:16)
[2021-06-25] MEDS: Nystatin 500,000 UNITS/5 ML UDCUP SSW SCH ×4 (08:14→20:38)
[2021-06-25] MEDS: Zinc Sulfate 220 MG CAP PO SCH (08:15)
[2021-06-25] MEDS: Benzonatate 100 MG CAP PO PRN (08:20)
[2021-06-25] MEDS ORDERED: Phenazopyridine HCl 100 MG TAB PO SCH (09:00)
[2021-06-25] MEDS: Phenazopyridine HCl 97.5 MG TABLET PO SCH ×2 (14:04→20:38)
[2021-06-25] MEDS: HumaLOG 300 UNITS/3 ML VIAL SC PRN (17:23)
[2021-06-25] MEDS: Enoxaparin Sodium 40 MG/0.4 ML SYRINGE SC SCH (20:38)
[2021-06-25] MEDS: Atorvastatin Calcium 20 MG TAB PO SCH (20:38)
[2021-06-25] MEDS: diphenhydrAMINE 25 MG CAP PO SCH (20:38)
[2021-06-25] MEDS: clonazePAM 0.5 MG TAB PO PRN (20:38)
[2021-06-25] MEDS: Lantus 1000 UNITS/10 ML VIAL SC SCH (20:41)
[2021-06-25] MEDS: guaiFENesin/Codeine 200 mg/20 mg 10 ml Cup PO PRN (23:59)
[2021-06-25] MEDS: Melatonin 3 MG TAB PO PRN (23:59)
[2021-06-26] MEDS: Cholecalciferol 1,000 UNITS (25 MCG) TAB PO SCH (08:59)
[2021-06-26] MEDS: Losartan Potassium 50 MG TAB PO SCH (09:00)
[2021-06-26] MEDS: Dexamethasone 4 MG TAB PO SCH (09:00)
[2021-06-26] MEDS: Ascorbic Acid 500 mg Chewable Tablet PO SCH (09:00)
[2021-06-26] MEDS: busPIRone HCl 15 MG TAB PO SCH ×2 (09:00→20:49)
[2021-06-26] MEDS: Zinc Sulfate 220 MG CAP PO SCH (09:00)
[2021-06-26] MEDS: Polyethylene Glycol 3350 17 GM Packet PO SCH (09:01)
[2021-06-26] MEDS: guaiFENesin ER 600 MG TAB PO SCH ×2 (09:01→20:49)
[2021-06-26] MEDS: Phenazopyridine HCl 97.5 MG TABLET PO SCH ×3 (09:01→20:49)
[2021-06-26] MEDS: Mometasone 100 MCG/PUFF (1 INHALER) INH SCH ×2 (09:01→21:14)
[2021-06-26] MEDS: Nystatin 500,000 UNITS/5 ML UDCUP SSW SCH ×4 (09:02→20:48)
[2021-06-26] MEDS: Metamucil PACK PO SCH (09:02)
[2021-06-26] MEDS: Acetaminophen 325 MG TAB PO PRN ×3 (09:05→23:46)
[2021-06-26] MEDS: HumaLOG 300 UNITS/3 ML VIAL SC PRN ×2 (11:42→16:32)
[2021-06-26] MEDS: Enoxaparin Sodium 40 MG/0.4 ML SYRINGE SC SCH (20:49)
[2021-06-26] MEDS: Lantus 1000 UNITS/10 ML VIAL SC SCH (20:49)
[2021-06-26] MEDS: diphenhydrAMINE 25 MG CAP PO SCH (20:49)
[2021-06-26] MEDS: Atorvastatin Calcium 20 MG TAB PO SCH (20:49)
[2021-06-26] MEDS: clonazePAM 0.5 MG TAB PO PRN (20:49)
[2021-06-26] MEDS: guaiFENesin/Codeine 200 mg/20 mg 10 ml Cup PO PRN (23:43)
[2021-06-26] MEDS: Melatonin 3 MG TAB PO PRN (23:44)
[2021-06-27] MEDS: Acetaminophen 325 MG TAB PO PRN ×3 (05:05→22:40)
[2021-06-27] MEDS: HumaLOG 300 UNITS/3 ML VIAL SC PRN ×2 (06:29→17:27)
[2021-06-27] MEDS: Cholecalciferol 1,000 UNITS (25 MCG) TAB PO SCH (08:40)
[2021-06-27] MEDS: guaiFENesin ER 600 MG TAB PO SCH ×2 (08:40→20:25)
[2021-06-27] MEDS: Ascorbic Acid 500 mg Chewable Tablet PO SCH (08:40)
[2021-06-27] MEDS: Losartan Potassium 50 MG TAB PO SCH (08:41)
[2021-06-27] MEDS: busPIRone HCl 15 MG TAB PO SCH ×2 (08:41→20:25)
[2021-06-27] MEDS: Phenazopyridine HCl 97.5 MG TABLET PO SCH ×3 (08:41→20:25)
[2021-06-27] MEDS: Nystatin 500,000 UNITS/5 ML UDCUP SSW SCH ×4 (08:41→20:26)
[2021-06-27] MEDS: Zinc Sulfate 220 MG CAP PO SCH (08:41)
[2021-06-27] MEDS: Dexamethasone 4 MG TAB PO SCH (08:41)
[2021-06-27] MEDS: Metamucil PACK PO SCH (08:44)
[2021-06-27] MEDS: Mometasone 100 MCG/PUFF (1 INHALER) INH SCH ×2 (08:44→20:26)
[2021-06-27] MEDS: Polyethylene Glycol 3350 17 GM Packet PO SCH (08:44)
[2021-06-27] MEDS: Enoxaparin Sodium 40 MG/0.4 ML SYRINGE SC SCH (20:25)
[2021-06-27] MEDS: clonazePAM 0.5 MG TAB PO PRN (20:25)
[2021-06-27] MEDS: diphenhydrAMINE 25 MG CAP PO SCH (20:25)
[2021-06-27] MEDS: Atorvastatin Calcium 20 MG TAB PO SCH (20:25)
[2021-06-27] MEDS: Lantus 1000 UNITS/10 ML VIAL SC SCH (20:26)
[2021-06-27] MEDS: Guaifenesin DM 100-10/5 ML UDCUP PO PRN (22:40)
[2021-06-27] MEDS: Melatonin 3 MG TAB PO PRN (22:40)
[2021-06-28] MEDS: HumaLOG 300 UNITS/3 ML VIAL SC PRN ×2 (05:25→17:22)
[2021-06-28] MEDS: busPIRone HCl 15 MG TAB PO SCH ×2 (08:21→20:47)
[2021-06-28] MEDS: guaiFENesin ER 600 MG TAB PO SCH ×2 (08:21→20:47)
[2021-06-28] MEDS: Ascorbic Acid 500 mg Chewable Tablet PO SCH (08:21)
[2021-06-28] MEDS: Cholecalciferol 1,000 UNITS (25 MCG) TAB PO SCH (08:21)
[2021-06-28] MEDS: Losartan Potassium 50 MG TAB PO SCH (08:22)
[2021-06-28] MEDS: Nystatin 500,000 UNITS/5 ML UDCUP SSW SCH ×4 (08:22→20:47)
[2021-06-28] MEDS: Mometasone 100 MCG/PUFF (1 INHALER) INH SCH ×2 (08:22→20:47)
[2021-06-28] MEDS: Zinc Sulfate 220 MG CAP PO SCH (08:23)
[2021-06-28] MEDS: Metamucil PACK PO SCH (08:23)
[2021-06-28] MEDS: Polyethylene Glycol 3350 17 GM Packet PO SCH (08:23)
[2021-06-28] MEDS: Acetaminophen 325 MG TAB PO PRN ×3 (08:28→20:50)
[2021-06-28] MEDS: Enoxaparin Sodium 40 MG/0.4 ML SYRINGE SC SCH (20:46)
[2021-06-28] MEDS: Lantus 1000 UNITS/10 ML VIAL SC SCH (20:47)
[2021-06-28] MEDS: Atorvastatin Calcium 20 MG TAB PO SCH (20:47)
[2021-06-28] MEDS: diphenhydrAMINE 25 MG CAP PO SCH (20:47)
[2021-06-28] MEDS: clonazePAM 0.5 MG TAB PO PRN (20:51)
[2021-06-28] MEDS: Guaifenesin DM 100-10/5 ML UDCUP PO PRN (23:01)
[2021-06-28] MEDS: Melatonin 3 MG TAB PO PRN (23:01)
[2021-06-29] MEDS: Acetaminophen 325 MG TAB PO PRN ×4 (03:49→23:11)
[2021-06-29] MEDS: Ondansetron ODT 4 MG TAB PO PRN (05:23)
[2021-06-29 05:28] LABS: Band 14 % (5-11); Eosinophils 1 % (0-10); Hemoglobin 12.9 g/dL (14.0-18.0); Lymphocytes 12 % (21-51); MDiff Complete? YES; Mean Corpuscular HGB CONC 32.8 g/dL (32.0-36.0); Mean Corpuscular Hemoglobin 29.1 pg (27.0-31.0); Mean Corpuscular Volume 88.7 fL (78.0-98.0); Mean Platelet Volume 6.4 fL (7.4-10.4); Metamyelocyte 4 % (0-0); Monocytes 8 % (0-10); Neutrophil 54 % (42-75); Nucleated RBC 2 % (0); Platelet Count 164 thou/uL (130-400); Platelet Morphology Comment Appears Adequate; RBC Distribution Width 13.5 % (11.5-14.5); RBC Morphology Normal; Reactive Lymphocytes 7 % (0-10); Red Blood Cell (RBC) Count 4.41 mill/uL (4.70-6.10); White Blood Cell (WBC) Count 9.2 thou/uL (4.8-10.8)
[2021-06-29 05:34] LABS: ALT (SGPT) 83 U/L (8-55); AST (SGOT) 30 U/L (5-34); Albumin 2.8 g/dL (3.4-4.8); Alkaline Phosphatase 78 U/L (40-110); Anion Gap 13 mmol/L (10-20); BUN (Urea Nitrogen) 18 mg/dL (8.4-25.7); Bilirubin, Total 0.9 mg/dL (0.2-1.2); Calc. Creatinine Clearance 125 mL/min (70-130); Calcium 8.4 mg/dL (7.8-10.44); Carbon Dioxide 24 mmol/L (23-31); Chloride 100 mmol/L (98-107); Globulin 2.8 g/dL (2.4-3.5); Glucose 69 mg/dL (83-110); Potassium 3.8 mmol/L (3.5-5.1); Protein, Total 5.6 g/dL (5.8-8.1); Sodium 133 mmol/L (136-145)
[2021-06-29 08:03] LABS: Bilirubin Negative (Negative); Blood, Urine Negative (Negative); Clarity Clear (Clear); Glucose, Urine (Dipstick) Negative (Negative); Ketone, Urine Negative (Negative); Leukocyte Negative (Negative); Nitrite Negative (Negative); Protein, Urine (Dipstick) Trace mg/dL (Neg-Trace); Specific Gravity, Urine 1.025 (1.005-1.030)
[2021-06-29] MEDS: Cholecalciferol 1,000 UNITS (25 MCG) TAB PO SCH (08:28)
[2021-06-29] MEDS: busPIRone HCl 15 MG TAB PO SCH ×2 (08:28→20:44)
[2021-06-29] MEDS: guaiFENesin ER 600 MG TAB PO SCH ×2 (08:28→20:39)
[2021-06-29] MEDS: Ascorbic Acid 500 mg Chewable Tablet PO SCH (08:28)
[2021-06-29] MEDS: Nystatin 500,000 UNITS/5 ML UDCUP SSW SCH ×5 (08:29→21:02)
[2021-06-29] MEDS: Losartan Potassium 50 MG TAB PO SCH (08:29)
[2021-06-29] MEDS: Mometasone 100 MCG/PUFF (1 INHALER) INH SCH ×2 (08:30→20:41)
[2021-06-29] MEDS: Metamucil PACK PO SCH (08:30)
[2021-06-29] MEDS: Polyethylene Glycol 3350 17 GM Packet PO SCH (08:30)
[2021-06-29] MEDS: Zinc Sulfate 220 MG CAP PO SCH (08:31)
[2021-06-29 10:53] LABS: CKMB 1.3 ng/mL (0-6.6); Troponin I 0.017 ng/mL (< 0.028)
[2021-06-29] MEDS: clonazePAM 0.5 MG TAB PO PRN ×2 (11:37→23:03)
[2021-06-29] MEDS ORDERED: traMADol HCl 50 MG TAB PO PRN (18:18)
[2021-06-29] MEDS: Atorvastatin Calcium 20 MG TAB PO SCH (20:38)
[2021-06-29] MEDS: Sulfameth/Trimethoprim DS 800-160mg TAB PO SCH (20:39)
[2021-06-29] MEDS: Enoxaparin Sodium 40 MG/0.4 ML SYRINGE SC SCH (20:39)
[2021-06-29] MEDS: Lantus 1000 UNITS/10 ML VIAL SC SCH (20:45)
[2021-06-29] MEDS: Melatonin 3 MG TAB PO PRN (20:53)
[2021-06-29] MEDS: diphenhydrAMINE 25 MG CAP PO SCH (23:03)
[2021-06-29 23:56] LABS: Lactic Acid 1.7 mmol/L (0.5-2.2)
[2021-06-30] MEDS: Acetaminophen 325 MG TAB PO PRN ×3 (05:23→20:06)
[2021-06-30] MEDS: Losartan Potassium 50 MG TAB PO SCH (08:25)
[2021-06-30] MEDS: Sulfameth/Trimethoprim DS 800-160mg TAB PO SCH ×2 (08:27→20:05)
[2021-06-30] MEDS: Ascorbic Acid 500 mg Chewable Tablet PO SCH (08:27)
[2021-06-30] MEDS: Cholecalciferol 1,000 UNITS (25 MCG) TAB PO SCH (08:27)
[2021-06-30] MEDS: busPIRone HCl 15 MG TAB PO SCH ×2 (08:27→20:05)
[2021-06-30] MEDS: Nystatin 500,000 UNITS/5 ML UDCUP SSW SCH ×4 (08:27→20:18)
[2021-06-30] MEDS: clonazePAM 0.5 MG TAB PO PRN ×2 (08:27→23:19)
[2021-06-30] MEDS: guaiFENesin ER 600 MG TAB PO SCH ×2 (08:27→20:05)
[2021-06-30] MEDS: Polyethylene Glycol 3350 17 GM Packet PO SCH (08:28)
[2021-06-30] MEDS: Metamucil PACK PO SCH (08:28)
[2021-06-30] MEDS: Mometasone 100 MCG/PUFF (1 INHALER) INH SCH ×2 (08:28→20:18)
[2021-06-30] MEDS ORDERED: Iopamidol 370 76% 100 ML VIAL ONE (09:00)
[2021-06-30] MEDS: HumaLOG 300 UNITS/3 ML VIAL SC PRN (11:33)
[2021-06-30] MEDS ORDERED: Amoxicillin/Potassium Clav 875 MG TAB PO SCH (13:30)
[2021-06-30] MEDS: Ondansetron ODT 4 MG TAB PO PRN (17:33)
[2021-06-30] MEDS: Amoxicillin/Potassium Clav 875 MG TAB PO SCH (20:05)
[2021-06-30] MEDS: Atorvastatin Calcium 20 MG TAB PO SCH (20:05)
[2021-06-30] MEDS: Melatonin 3 MG TAB PO PRN (20:06)
[2021-06-30] MEDS: Enoxaparin Sodium 40 MG/0.4 ML SYRINGE SC SCH (20:07)
[2021-06-30] MEDS: Lantus 1000 UNITS/10 ML VIAL SC SCH (20:20)
[2021-06-30] MEDS: diphenhydrAMINE 25 MG CAP PO SCH (23:19)
[2021-06-30] MEDS: Guaifenesin DM 100-10/5 ML UDCUP PO PRN (23:19)
[2021-07-01 06:01] LABS: Anion Gap 12 mmol/L (10-20); BUN (Urea Nitrogen) 14 mg/dL (8.4-25.7); Calc. Creatinine Clearance 116 mL/min (70-130); Calcium 8.8 mg/dL (7.8-10.44); Carbon Dioxide 27 mmol/L (23-31); Chloride 101 mmol/L (98-107); Glucose 119 mg/dL (83-110); Potassium 4.5 mmol/L (3.5-5.1); Sodium 135 mmol/L (136-145)
[2021-07-01 06:14] LABS: Hemoglobin 12.6 g/dL (14.0-18.0); Mean Corpuscular HGB CONC 32.8 g/dL (32.0-36.0); Mean Corpuscular Hemoglobin 29.4 pg (27.0-31.0); Mean Corpuscular Volume 89.8 fL (78.0-98.0); Mean Platelet Volume 6.5 fL (7.4-10.4); Platelet Count 149 thou/uL (130-400); RBC Distribution Width 13.6 % (11.5-14.5); Red Blood Cell (RBC) Count 4.29 mill/uL (4.70-6.10); White Blood Cell (WBC) Count 7.2 thou/uL (4.8-10.8)
[2021-07-01 06:15] LABS: Band 22 % (5-11); Lymphocytes 19 % (21-51); MDiff Complete? YES; Metamyelocyte 9 % (0-0); Monocytes 3 % (0-10); Myelocyte 3 % (0-0); Neutrophil 44 % (42-75); Platelet Morphology Comment Appears Adequate; Polychromasia SLIGHT = 2-3 cells (100X) (0-2/hpf)
[2021-07-01] MEDS: Ascorbic Acid 500 mg Chewable Tablet PO SCH (07:50)
[2021-07-01] MEDS: Nystatin 500,000 UNITS/5 ML UDCUP SSW SCH ×2 (07:50→13:25)
[2021-07-01] MEDS: Amoxicillin/Potassium Clav 875 MG TAB PO SCH (07:50)
[2021-07-01] MEDS: Acetaminophen 325 MG TAB PO PRN ×2 (07:50→14:56)
[2021-07-01] MEDS: Sulfameth/Trimethoprim DS 800-160mg TAB PO SCH (07:51)
[2021-07-01] MEDS: Polyethylene Glycol 3350 17 GM Packet PO SCH (07:51)
[2021-07-01] MEDS: Cholecalciferol 1,000 UNITS (25 MCG) TAB PO SCH (07:51)
[2021-07-01] MEDS: guaiFENesin ER 600 MG TAB PO SCH (07:51)
[2021-07-01] MEDS: Mometasone 100 MCG/PUFF (1 INHALER) INH SCH (07:52)
[2021-07-01] MEDS: Metamucil PACK PO SCH (07:53)
[2021-07-01] MEDS: busPIRone HCl 15 MG TAB PO SCH (07:56)
[2021-07-01] MEDS ORDERED: Losartan Potassium 50 MG TAB PO SCH (09:00)
[2021-07-01 09:27] VITALS: BP 107/72
[2021-07-01] MEDS: clonazePAM 0.5 MG TAB PO PRN (11:29)
[2021-07-01] MEDS ORDERED: Piperacillin/Tazobactam 3.375 GM in Sodium Chloride 0.9% 100 ML IVPB SCH ×2 (12:00→20:00)
[2021-07-01 15:01] VITALS: TEMP 99.2
[2021-07-01] MEDS ORDERED: Vancomycin HCl 1.5 GM in Sodium Chloride 0.9% 250 ML 250 ML IVPB SCH (21:00)
== END 2021-07-01 16:10 | disposition short-term general hospital (02) | DRG 947 ==
LOC: NAV ACUTE 17:57
PROVIDERS: ADMIT Family Medicine; ATTEND Family Medicine
DX: R53.81 Other malaise (principal); J96.01 Acute respiratory failure with hypoxia; J18.9 Pneumonia, unspecified organism; N39.0 Urinary tract infection, site not specified; J93.9 Pneumothorax, unspecified; I10 Essential (primary) hypertension; E78.5 Hyperlipidemia, unspecified; K21.9 Gastro-esophageal reflux disease without esophagitis; E09.8 Drug or chemical induced diabetes mellitus with unspecified complications; F41.9 Anxiety disorder, unspecified; T38.0X5A Adverse effect of glucocorticoids and synthetic analogues, initial encounter; G47.33 Obstructive sleep apnea (adult) (pediatric); R79.89 Other specified abnormal findings of blood chemistry; D72.829 Elevated white blood cell count, unspecified; S29.011A Strain of muscle and tendon of front wall of thorax, initial encounter; X58.XXXA Exposure to other specified factors, initial encounter; Z98.890 Other specified postprocedural states; Z87.891 Personal history of nicotine dependence; Z79.899 Other long term (current) drug therapy
CPT/HCPCS: 36415; 36416; 71045; 71275; 80048; 80053; 81001; 81003; 82550; 82553; 83036; 83605; 84484; 85025; 87040; 87077; 87086; 87186; J1200; J1650; J1815; J2543; J3490; J8540; Q0162; Q9967